=== PATIENT | female | born 1980 | race Two or more races ===

== ENCOUNTER 2019-07-06 11:27 | Emergency (ER) | payer SELFPAY ==
[2019-07-06 11:42] VITALS: BP 121/75; PULSE 83; TEMP 99.1; BMI 30.2
[2019-07-06] MEDS ORDERED: ACETAMINOPHEN 325 MG TABLET (FP) PO ONE (12:12)
--- NOTE | 2019-07-06 12:16 | PDOC ---
History of Present Illness - General Chief Complaint: Cold Symptoms Stated Complaint: FLU Time Seen by Provider: 07/06/19 11:48 - History of Present Illness Initial Comments: 07/06/19 12:12 39 years old with no significant past medical history presents to the emergency department with influenza type symptoms. Positive sick contact a friend of hers who she was with yesterday recently diagnosed with flu today patient presents with 2-day history of fever chills body aches nasal congestion sore throat runny nose symptoms are mild to moderate no exacerbating or alleviating factors Past History - Past Medical History Allergies/Adverse Reactions: Allergies Allergy/AdvReac Type Severity Reaction Status Date / Time No Known Allergies Allergy Verified 07/06/19 11:28 Home Medications: Ambulatory Orders NK [No Known Home Medication] 07/06/19 COPD: No - Psycho Social/Smoking Cessation Hx Smoking History: Never smoked Have you smoked in the past 12 months: No Information on smoking cessation initiated: No Hx Alcohol Use: No Drug/Substance Use Hx: No Review of Systems - Review of Systems Comments:: 07/06/19 12:13 ROS: A complete review of 10 out of 10 review of systems is taken and is negative apart from what is previously mentioned below and in the HPI. *Physical Exam - Vital Signs Last Vital Signs Temp Pulse Resp BP Pulse Ox 99.1 F 83 20 121/75 100 07/06/19 11:28 07/06/19 11:28 07/06/19 11:28 07/06/19 11:28 07/06/19 11:28 - Physical Exam 07/06/19 12:16 Vitals: Triage Vital signs reviewed General Appearance: No acute distress, well nourished well developed, Head: Atraumatic, Neck: Supple; no Nucal rigidity Chest Wall: Nontender Cardiac: Regular rate and rhythym, no murmurs, no rubs, no gallops, Lungs: Clear to auscultation bilateral, good air movement bilaterally, Abdomen: Soft, non distended, normal bowel sounds, non tender to palpation Extremities: Full range of motion to all extremities, no cyanosis, clubbing, or edema Skin: Warm and dry, no rashes or lesions, no rash, no petechiae Psych: Normal mood, normal affect Medical Decision Making - Medical Decision Making 07/06/19 12:17 Well-appearing no apparent distress history and examination consistent with influenza Shared decision-making used patient would not like Tamiflu at this time given side effect profile Will provide note for work Tylenol Motrin for fever control Findings, the need for follow-up and strict return instructions discussed with patient. Discharge - Discharge Information Problems reviewed: Yes Clinical Impression/Diagnosis: Influenza Condition: Fair - Admission No - Follow up/Referral - Patient Discharge Instructions Patient Printed Discharge Instructions: Influenza Additional Instructions: Rest, drink plenty of fluids. Alternate Tylenol Motrin every 3 hours for fever. Return to ED for any severe worsening symptoms or for any concerns. - Post Discharge Activity Work/Back to School Note: Back to Work
[2019-07-06] MEDS ORDERED: ACETAMINOPHEN 325 MG TABLET (FP) ONE (12:22)
== END 2019-07-06 12:35 | disposition home or self-care (01) ==
LOC: FER 11:27
DX: J11.1 Influenza due to unidentified influenza virus with other respiratory manifestations (principal)
CPT/HCPCS: 99282-25

== ENCOUNTER 2022-08-03 08:55 | Emergency (ER) | payer OTHER ==
[2022-08-03 09:09] VITALS: BP 119/82; PULSE 61; RESP 18; TEMP 98.1; BMI 31.1
[2022-08-03] MEDS ORDERED: KETOROLAC TROMETHAMINE 30 MG/1 ML VIAL IM ONE (09:45)
[2022-08-03] MEDS ORDERED: METHOCARBAMOL 500 MG TABLET PO ONE (09:46)
[2022-08-03] MEDS ORDERED: LIDOCAINE 5% TOPICAL PATCH TP ONE (09:46)
[2022-08-03] MEDS ORDERED: LIDOCAINE 5% TOPICAL PATCH ONE (09:50)
[2022-08-03] MEDS ORDERED: METHOCARBAMOL 500 MG TABLET ONE (09:51)
[2022-08-03] MEDS ORDERED: KETOROLAC TROMETHAMINE 30 MG/1 ML VIAL ONE (09:51)
== END 2022-08-03 10:23 | disposition home or self-care (01) ==
LOC: JERFT 08:55
PROC: 3E0233Z Introduction of Anti-inflammatory into Muscle, Percutaneous Approach (ICD-10-PCS; principal; 2022-08-03)
DX: S46.911A Strain of unspecified muscle, fascia and tendon at shoulder and upper arm level, right arm, initial encounter (principal); M25.511 Pain in right shoulder; V49.40XA Driver injured in collision with unspecified motor vehicles in traffic accident, initial encounter
CPT/HCPCS: 72050-TC-FY; 73030-TC-RT-FY; 99284-25

== ENCOUNTER → 2023-06-18 | Day surgery (SDC) | payer OTHER | END | disposition home or self-care (01) | LOC: JRADUS-SUR 10:19 | PROVIDERS: ATTEND Nurse Practitioner Adult Health | PROC: 0H9T3ZX Drainage of Right Breast, Percutaneous Approach, Diagnostic (ICD-10-PCS; principal; 2023-06-18) | DX: N60.11 Diffuse cystic mastopathy of right breast (principal) | CPT/HCPCS: 19083; 77065-TC; 87899; A4648 ==

== ENCOUNTER 2024-05-06 12:45 | Observation (INO) | payer OTHER ==
[2024-05-06 13:09] VITALS: BMI 27.4
[2024-05-06] MEDS ORDERED: LACTATED RINGERS SOLUTION 1000 ML INFUS.BAG IV ONE (13:18)
[2024-05-06] MEDS: ONDANSETRON 4 MG/2 ML VIAL IVPUSH ONE (14:23)
[2024-05-06] MEDS: SODIUM CHLORIDE 0.9% 1000 ML INFUS.BAG IV ONE (14:23)
[2024-05-06] MEDS ORDERED: ONDANSETRON 4 MG/2 ML VIAL ONE (14:24)
[2024-05-06] MEDS ORDERED: AZITHROMYCIN IVPB 500 MG/250 ML BAG IVPB ONE (14:29)
[2024-05-06] MEDS ORDERED: CEFTRIAXONE 1 G/50 ML PREMIX 50 ML IVPB ONE (14:29)
[2024-05-06] MEDS: CEFTRIAXONE 1 GM in DEXTROSE 5%-WATER - 50 ML IVPB ONE (14:32)
[2024-05-06] MEDS: AZITHROMYCIN IVPB 500 MG in DEXTROSE 5%-WATER - 250 ML IVPB ONE (14:39)
[2024-05-06 14:42] LABS: BASO % 0.2 % (0-2.0); EOS % 0.1 % (0-4.5); HEMATOCRIT 34.9 % (32.4-45.2); LYMPH % 6.6 % (8-40); MCH 25.3 pg (25.7-33.7); MCHC 31.6 g/dl (32.0-36.0); MEAN CELL VOLUME 80.2 fl (80-96); MEAN PLT VOLUME 7.7 fl (7.5-11.1); MONO % 6.1 % (3.8-10.2); PLATELET COUNT 370 10^3/uL (134-434); RBC 4.35 M/mm3 (3.60-5.2); RDW 13.8 % (11.6-15.6)
[2024-05-06 14:56] LABS: INR 1.31 (0.83-1.09); PROTHROMBIN TIME (PATIENT) 14.9 SEC (9.7-13.0)
[2024-05-06 14:59] LABS: ACTIVATED PTT 31.5 SECONDS (25.2-36.5)
[2024-05-06] MEDS ORDERED: ACETAMINOPHEN INJECTION 100 ML ONE (15:08)
[2024-05-06 15:11] LABS: POTASSIUM 3.3 mmol/L (3.5-5.1)
[2024-05-06 15:15] LABS: CALCIUM 8.7 mg/dL (8.5-10.1)
[2024-05-06 15:16] LABS: ALBUMIN 3.1 g/dl (3.4-5.0); BLOOD UREA NITROGEN 7.6 mg/dL (7-18); MAGNESIUM 2.1 mg/dL (1.8-2.4)
[2024-05-06 15:18] LABS: CREATININE 0.7 mg/dL (0.55-1.3)
[2024-05-06 15:20] LABS: BILIRUBIN,TOTAL 0.9 mg/dL (0.2-1); TOT PROT 7.3 g/dl (6.4-8.2)
[2024-05-06] MEDS: ACETAMINOPHEN 1000 MG/100 ML BAG IVPB ONE ×2 (15:20→16:40)
[2024-05-06] MEDS: KCL 10 MEQ IVPB 10 MEQ/100 ML INFUS.BAG IVPB SCH (17:14)
[2024-05-06 17:43] LABS: PHOSPHOROUS 1.3 mg/dL (2.5-4.9)
[2024-05-06] MEDS: SODIUM CHLORIDE 1,000 ML IV SCH (18:25)
[2024-05-06] MEDS: SODIUM PHOSPHATE - 30 MM in SODIUM CHLORIDE 250 ML IVPB ONE (20:05)
[2024-05-06] MEDS: ACETAMINOPHEN 325 MG TABLET (FP) PO PRN (20:05)
[2024-05-06] MEDS: ONDANSETRON 4 MG/2 ML VIAL IVPUSH PRN (20:06)
[2024-05-06] MEDS: MELATONIN 5 MG TABLETS PO ONE (22:07)
[2024-05-07 09:25] LABS: BASO % 0.3 % (0-2.0); EOS % 3.1 % (0-4.5); HEMATOCRIT 31.4 % (32.4-45.2); HEMOGLOBIN 10.5 GM/dL (10.7-15.3); LYMPH % 13.7 % (8-40); MCH 26.5 pg (25.7-33.7); MCHC 33.5 g/dl (32.0-36.0); MEAN CELL VOLUME 79.3 fl (80-96); MEAN PLT VOLUME 7.6 fl (7.5-11.1); MONO % 8.7 % (3.8-10.2); NEUT % 74.2 % (42.8-82.8); PLATELET COUNT 339 10^3/uL (134-434); RBC 3.96 M/mm3 (3.60-5.2); RDW 14.1 % (11.6-15.6); WHITE BLOOD COUNT 10.5 K/mm3 (4.0-10.0)
[2024-05-07 09:55] LABS: POTASSIUM 3.1 mmol/L (3.5-5.1)
[2024-05-07] MEDS: CEFTRIAXONE 1 G/50 ML PREMIX 50 ML IVPB SCH (09:55)
[2024-05-07] MEDS: ENOXAPARIN NA (PORCINE) 40 MG/0.4 ML DISP.SYRIN SQ SCH (09:55)
[2024-05-07 10:02] LABS: ALBUMIN 2.8 g/dl (3.4-5.0); BLOOD UREA NITROGEN 4.4 mg/dL (7-18); CALCIUM 8.1 mg/dL (8.5-10.1)
[2024-05-07 10:04] LABS: BILIRUBIN,TOTAL 0.6 mg/dL (0.2-1)
[2024-05-07 10:05] LABS: CREATININE 0.5 mg/dL (0.55-1.3); TOT PROT 6.4 g/dl (6.4-8.2)
[2024-05-07 10:06] LABS: PHOSPHOROUS 1.5 mg/dL (2.5-4.9)
[2024-05-07] MEDS: AZITHROMYCIN IVPB 250 MG in DEXTROSE 5%-WATER - 250 ML IVPB SCH (10:32)
[2024-05-07] MEDS: NAPH,MB-DB/K PH,MBDB POWDER PACKET PO ONE (11:28)
[2024-05-07] MEDS: POTASSIUM CHLORIDE ORAL LIQUID 20 MEQ/15 ML PO ONE (11:28)
[2024-05-07 18:46] LABS: CALCIUM 8.5 mg/dL (8.5-10.1)
[2024-05-07 18:47] LABS: ALBUMIN 2.9 g/dl (3.4-5.0); BLOOD UREA NITROGEN 3.3 mg/dL (7-18)
[2024-05-07 18:50] LABS: CREATININE 0.5 mg/dL (0.55-1.3)
[2024-05-07 18:52] LABS: BILIRUBIN,TOTAL 0.5 mg/dL (0.2-1); TOT PROT 6.8 g/dl (6.4-8.2)
[2024-05-07] MEDS: MELATONIN 5 MG TABLETS PO PRN (22:46)
[2024-05-08 09:23] LABS: BASO % 0.5 % (0-2.0); EOS % 4.3 % (0-4.5); HEMATOCRIT 37.1 % (32.4-45.2); HEMOGLOBIN 11.7 GM/dL (10.7-15.3); LYMPH % 18.6 % (8-40); MCH 25.6 pg (25.7-33.7); MCHC 31.6 g/dl (32.0-36.0); MEAN CELL VOLUME 80.8 fl (80-96); MEAN PLT VOLUME 7.7 fl (7.5-11.1); MONO % 6.5 % (3.8-10.2); NEUT % 70.1 % (42.8-82.8); PLATELET COUNT 497 10^3/uL (134-434); RBC 4.59 M/mm3 (3.60-5.2); RDW 14.2 % (11.6-15.6); WHITE BLOOD COUNT 8.8 K/mm3 (4.0-10.0)
[2024-05-08 09:35] LABS: POTASSIUM 3.6 mmol/L (3.5-5.1)
[2024-05-08 09:38] LABS: CALCIUM 9.6 mg/dL (8.5-10.1)
[2024-05-08 09:39] LABS: ALBUMIN 3.3 g/dl (3.4-5.0); BLOOD UREA NITROGEN 5.1 mg/dL (7-18); MAGNESIUM 2.2 mg/dL (1.8-2.4)
[2024-05-08 09:42] LABS: CREATININE 0.7 mg/dL (0.55-1.3); PHOSPHOROUS 2.2 mg/dL (2.5-4.9)
[2024-05-08 09:43] LABS: BILIRUBIN,TOTAL 0.7 mg/dL (0.2-1); TOT PROT 7.9 g/dl (6.4-8.2)
[2024-05-08] MEDS: NAPH,MB-DB/K PH,MBDB POWDER PACKET PO ONE (10:27)
[2024-05-08 10:30] LABS: ANISOCYTOSIS 0; MACROCYTOSIS 0
[2024-05-08 10:48] VITALS: BP 132/68; PULSE 75; RESP 18; TEMP 98.6
[2024-05-08] MEDS ORDERED: NAPH,MB-DB/K PH,MBDB POWDER PACKET PO ONE (11:00)
== END 2024-05-08 13:24 | disposition home or self-care (01) ==
LOC: JER 12:45 → JERBED 15:58 → J6S 18:41
PROVIDERS: ADMIT Internal Medicine Endocrinology, Diabetes & Metabolism; ATTEND Student in an Organized Health Care Education/Training Program
PROC: 3E03329 Introduction of Other Anti-infective into Peripheral Vein, Percutaneous Approach (ICD-10-PCS; principal; 2024-05-06)
PROC: 3E033NZ Introduction of Analgesics, Hypnotics, Sedatives into Peripheral Vein, Percutaneous Approach (ICD-10-PCS; 2024-05-06)
PROC: 3E033GC Introduction of Other Therapeutic Substance into Peripheral Vein, Percutaneous Approach (ICD-10-PCS; 2024-05-06)
PROC: 3E013GC Introduction of Other Therapeutic Substance into Subcutaneous Tissue, Percutaneous Approach (ICD-10-PCS; 2024-05-06)
PROC: 3E0337Z Introduction of Electrolytic and Water Balance Substance into Peripheral Vein, Percutaneous Approach (ICD-10-PCS; 2024-05-06)
DX: J18.9 Pneumonia, unspecified organism (principal); E87.6 Hypokalemia; E83.30 Disorder of phosphorus metabolism, unspecified
CPT/HCPCS: 36415; 80053; 83690; 83735; 84100; 85025; 85610; 85730; 93005; 93010; 96365; 96366; 96367; 96372; 96375; 96376; 99285-25; G0378; J0131